=== PATIENT | male | born 1980 | race Caucasian/White ===

== ENCOUNTER → 2017-01-22 | Outpatient (CLI) | payer BC ==
[2017-01-22 12:11] LABS: BASOPHIL % 0.2 % (0.0-0.2); EOSINOPHIL # 0.1 10^3/uL (0.0-0.2); EOSINOPHIL % 1.4 % (0.0-5.0); HEMOGLOBIN 14.1 g/dL (13.9-16.3); LYMPHOCYTES # 1.6 10^3/uL (1.0-4.8); LYMPHOCYTES % 24.6 % (24.0-44.0); MEAN CELL HGB 29.7 pg (26-34); MEAN CELL HGB CONCENTRATION 34.4 g/dL (33-37); MEAN CORP VOLUME 86.5 fL (78-100); MEAN PLATELET VOLUME 10.1 fL (7.8-11.0); MONOCYTES # 0.6 10^3/uL (0.3-0.8); NEUTROPHIL # 4.2 10^3/uL (1.8-7.7); NEUTROPHILS % 64.6 % (41.0-85.0); RED CELL DISTRIBUTION WIDTH 13.2 % (11.5-14.5); WHITE BLOOD CELL 6.5 10^3/uL (4.5-11.0)
[2017-01-22 12:31] LABS: CALCIUM 9.2 mg/dL (8.4-10.5); CARBON DIOXIDE 26.1 mmol/L (20.0-32)
--- NOTE | 2017-01-22 13:59 | DIREP ---
PROCEDURE:CT ABDOMEN W/ + W/O CONTRAST COMPARISON:None. INDICATIONS:RUQ PAIN X 4 MO TECHNIQUE:Axial images were created through the abdomen with and without non-ionic intravenous contrast material. Oral contrast was administered. Sagittal and coronal reconstructions were performed from source images. FINDINGS: LUNG BASES:Normal. No visible pulmonary or pleural disease. LIVER:There is a 9 mm low-density area in the posterior superior portion of the right hepatic lobe, seen only on the postcontrast images. BILIARY:Normal. No visible dilatation or calcification. PANCREAS:Normal. No lesion, fluid collection, ductal dilatation, or atrophy. SPLEEN:Normal. No enlargement or focal lesion. ADRENALS:Normal. No mass or enlargement. URINARY TRACT:There are bilateral nonobstructing renal calcifications. The largest calculus is in the left kidney measures 5 mm diameter. No ureteral obstruction or calculus on either side. AORTA/VASCULAR:Normal. No aneurysm. RETROPERITONEUM:Normal. No mass or adenopathy. BOWEL/MESENTERY:There is no intestinal obstruction, free fluid, free air, or mesenteric inflammatory change. The appendix is normal. ABDOMINAL WALL:Normal. No mass or hernia. PELVIC ORGANS:The pelvis was not imaged. BONES:No acute pathology. A well-defined sclerotic rimmed 0.9 x 1.1 x 1.1 parameter low-density area is seen in the left paracentral portion of the L3 vertebral body. OTHER:Negative. CONCLUSION: 1. A sub cm low-density area in the right hepatic lobe is too small to characterize but likely represents a benign hemangioma or cyst. This most certainly is not related to the patient's presenting symptom of right upper quadrant pain. 2. Bilateral nonobstructing renal calcifications without hydronephrosis. 3. A nonaggressive appearing low-density area in the L3 vertebral body is of uncertain etiology but may represent a bone cyst. If the patient has back pain symptomatology, MRI scan of the lumbar spine radionuclide bone scan may be obtained for further evaluation. Dictated by: Frank Brock M.D. on 01/22/2017 at 01:41 PM
== END | disposition home or self-care (01) ==
LOC: RAD 11:53
PROVIDERS: ATTEND Nurse Practitioner Family
DX: R10.11 Right upper quadrant pain (principal); K90.49 Malabsorption due to intolerance, not elsewhere classified; R11.0 Nausea; N28.89 Other specified disorders of kidney and ureter; Z87.442 Personal history of urinary calculi
CPT/HCPCS: 36415; 74170; 80053; 82150; 83690; 85025; 86677; Q9967